=== PATIENT | female | born 1975 | race Caucasian/White ===

== ENCOUNTER → 2020-03-30 | Outpatient (CLI) | payer OTHER ==
[~2020-03-30] MED LIST: GADOTERATE 7.5 MMOL/15ML VIAL. IVP ONE; LEXAPRO20 MG PO
--- NOTE | 2020-03-30 12:15 | KCIC ---
EXAMINATION: Magnetic resonance imaging (MRI) of the brain and brainstem without and with contrast 10:55 AM HISTORY: Intractable migraine, paresthesias TECHNIQUE: Multiplanar multi-weighted MRI of the brain and brainstem was performed without and with i ntravenous contrast using the general brain protocol. Contrast information: 10 mL Gadolinium based contrast COMPARISON: CT head 11/05/2019 FINDINGS: The scalp and calvarium are normal. The superior sagittal sinus demonstrates normal venous flow. The corpus callosum is normal in shape and signal intensity. The posterior fossa is unremarkable. The p ituitary and sella are normal. The brainstem and craniocervical junction are unremarkable. Punctate focus of FLAIR signal alteration identified subcortical white matter of the right posterior frontal l obe (series 6, image 17), within the range of normal age-related changes. Diffusion weighted images reveal no hyperintensities to suggest acute cerebral infarction. The suscep tibility weighted sequences reveal no evidence of acute or chronic hemorrhage. The ventricles are nor mal in size and position without evidence of hydrocephalus. There are no areas of abnormal contrast enhancement. The paranasal sinuses are normal. The visualized portions of the mastoids are unremarkable. The orbi ts appear normal. Normal flow voids are demonstrated in the carotid arteries and basilar artery. IMPRESSION: No evidence for acute or subacute ischemia. Electronically signed by: Nano Rios MD (03/30/2020 12:13 PM) [id number]
== END ==
LOC: KCIC MRI 10:43
PROVIDERS: ATTEND Psychiatry & Neurology Neurology with Special Qualifications in Child Neurology
DX: M35.00 Sjogren syndrome, unspecified (principal); G43.019 Migraine without aura, intractable, without status migrainosus; R20.0 Anesthesia of skin; R20.2 Paresthesia of skin
CPT/HCPCS: 70553; A9575